=== PATIENT | female | born 1970 | race Caucasian/White ===

== ENCOUNTER 2018-04-11 12:04 | Emergency (ER) | payer OTHER ==
[2018-04-11] MEDS ORDERED: ASPIRIN 81 MG TABLET, CHEWABLE PO ONE (12:21)
[2018-04-11] MEDS ORDERED: MAG HYDROX/AL HYDROX/SIMETH SUSP 30 ML UDCUP PO ONE (12:29)
[2018-04-11] MEDS ORDERED: LIDOCAINE 2% VISCOUS SOLN 20 ML UDCUP PO ONE (12:29)
[2018-04-11] MEDS ORDERED: METOCLOPRAMIDE HCL ORAL SOLN 10 MG/10 ML UDCUP PO ONE (12:29)
--- NOTE | 2018-04-11 12:49 | RADIOLOGY REPORT (SQ) ---
EXAM DESCRIPTION: CHEST SINGLE VIEW COMPLETED DATE/TIME: 04/11/2018 12:41 pm REASON FOR STUDY: chest pain COMPARISON: None. EXAM PARAMETERS: NUMBER OF VIEWS: One view. TECHNIQUE: Single frontal radiographic view of the chest acquired. RADIATION DOSE: NA LIMITATIONS: None. FINDINGS: LUNGS AND PLEURA: No opacities, masses or pneumothorax. No pleural effusion. MEDIASTINUM AND HILAR STRUCTURES: No masses. Contour normal. HEART AND VASCULAR STRUCTURES: Heart normal in size. Normal vasculature. BONES: No acute findings. HARDWARE: None in the chest. OTHER: No other significant finding. IMPRESSION: NO ACUTE RADIOGRAPHIC FINDING IN THE CHEST. TECHNICAL DOCUMENTATION: JOB ID: [id number] [employer] All Rights Reserved Reading location - IP/workstation name: [email or web address]
[2018-04-11 13:05] LABS: ABSOLUTE LYMPHOCYTES (AUTO) 1.5 10^3/uL (0.5-4.7); ABSOLUTE MONOCYTES (AUTO) 0.4 10^3/uL (0.1-1.4); BASOPHILS % (AUTO) 0.7 % (0-2); EOSINOPHILS % (AUTO) 0.8 % (0-6); HEMATOCRIT 39.6 % (36.0-47.0); HEMOGLOBIN 13.3 g/dL (12.0-15.5); MEAN CORPUSCULAR HEMOGLOBIN 27.1 pg (27.0-33.4); MEAN CORPUSCULAR HGB CONC 33.5 g/dL (32.0-36.0); MEAN CORPUSCULAR VOLUME 81 fl (80-97); MONOCYTES % (AUTO) 6.5 % (3-13); PLATELET COUNT 205 10^3/uL (150-450); RED BLOOD COUNT 4.91 10^6/uL (3.72-5.28); RED CELL DISTRIBUTION WIDTH 14.1 % (11.5-14.0); TOTAL CELLS COUNTED % (AUTO) 100 %
[2018-04-11 13:24] LABS: ALANINE AMINOTRANSFERASE 41 U/L (9-52); ALBUMIN 4.4 g/dL (3.5-5.0); ALKALINE PHOSPHATASE 70 U/L (38-126); ANION GAP 9 (5-19); ASPARTATE AMINO TRANSFERASE 34 U/L (14-36); BILIRUBIN,DIRECT 0.1 mg/dL (0.0-0.4); BILIRUBIN,TOTAL 0.4 mg/dL (0.2-1.3); BLOOD UREA NITROGEN 13 mg/dL (7-20); CALCIUM 10.1 mg/dL (8.4-10.2); CARBON DIOXIDE 28 mmol/L (22-30); CHLORIDE 104 mmol/L (98-107); CREATINE KINASE 66 U/L (30-135); GLUCOSE 88 mg/dL (75-110); POTASSIUM 4.2 mmol/L (3.6-5.0); SODIUM 141.4 mmol/L (137-145); TOTAL PROTEIN 7.5 g/dL (6.3-8.2)
[2018-04-11] MEDS ORDERED: NITROGLYCERIN 0.4 MG/TAB 25 TAB/BOTTLE SL PRN (13:33)
[2018-04-11 13:39] LABS: CREATINE KINASE MB 0.46 ng/mL (<4.55)
[2018-04-11 13:48] LABS: TROPONIN I < 0.012 ng/mL
--- NOTE | 2018-04-11 15:43 | ER Document Report ---
ED General - General Chief Complaint: Chest Pain Stated Complaint: CHEST PAIN Time Seen by Provider: 04/11/18 12:20 Primary Care Provider: CANDIDA KNIGHT MD [ASSOCIATE] - Follow up as needed TARIK GRANDA MD [NO LOCAL MD] - Follow up as needed Notes: 47 year old female with a history of GERD on prescribed Prilosec presents to the emergency department complaining of chest pain onset last night. She states her pain started epigastrically and radiated into her neck and right side of her jaw. She initially attributed her symptoms to her heart burn and proceeded to drink milk but states this did not alleviate her symptoms. She is concerned because this episode was different from previous heartburn attacks, she developed chest tightness and shortness of breath, became diaphoretic, had a headache where she felt a "rosales to my head ", nausea. Patient denies ever having an EGD or colonoscopy. Patient states there is a strong family history of cardiac disease on the female side. Patient is a smoker. TRAVEL OUTSIDE OF THE [place] IN LAST 30 DAYS: No - Related Data Allergies/Adverse Reactions: No Known Allergies Allergy (Verified 04/11/18 12:05) Past Medical History - Social History Smoking Status: Current Every Day Smoker Family History: Arthritis, CAD, CVA, DM, Hyperlipidemia, Hypertension, Malignancy, Thyroid Disfunction Patient has suicidal ideation: No Patient has homicidal ideation: No Neurological Medical History: Reports: Hx Migraine Renal/ Medical History: Denies: Hx Peritoneal Dialysis GI Medical History: Reports: Hx Gastroesophageal Reflux Disease, Hx Hiatal Hernia Past Surgical History: Reports: Hx Breast Surgery - removed, Hx Cholecystectomy, Hx Genitourinary Surgery - bladder tact, Hx Hysterectomy, Hx Urinary Tract Surgery - bladder tac - Immunizations Immunizations up to date: Yes Hx Diphtheria, Pertussis, Tetanus Vaccination: Yes Physical Exam - Vital signs Vitals: Temp Pulse Resp BP Pulse Ox 98.2 F 76 16 115/76 100 04/11/18 12:07 04/11/18 12:07 04/11/18 12:07 04/11/18 12:07 04/11/18 12:07 Course - Re-evaluation Re-evalutation: 04/11/18 17:06 Very well-appearing 47 female with history of GERD but new chest pain unlike previous history of GERD. Patient received a GI cocktail while in triage approximately 15 minutes later was having some chest pain. She has not had any episodes since. Her pain is mostly epigastric and she does have tenderness to palpation of the epigastrium. Initial troponin negative. EKG normal sinus rhythm, chest x-ray unremarkable. Heart score 3. Repeat troponin just drawn. 04/11/18 18:24 Second troponin was negative. Patient has a negative workup. With heart score of 3 and known history of GERD I think the patient is safe and stable to discharge home with close cardiology follow-up for stress testing. I will discuss with the patient. Patient agrees with plan and has close follow-up with primary care. I have given her cardiology referral. 04/11/18 19:27 - Vital Signs Vital signs: Temp Pulse Resp BP Pulse Ox 98.2 F 76 12 108/79 95 04/11/18 12:07 04/11/18 12:07 04/11/18 18:01 04/11/18 18:00 04/11/18 18:01 - Laboratory Result Diagrams: 04/11/18 12:50 04/11/18 12:50 Laboratory results interpreted by me: 04/11/18 12:50 RDW 14.1 H Discharge - Discharge Clinical Impression: Chest pain Qualifiers: Chest pain type: unspecified Qualified Code(s): R07.9 - Chest pain, unspecified Condition: Good Disposition: HOME, SELF-CARE Instructions: Chest Pain of Unclear Cause ([facility]), Reflux Disease (GERD) ([facility]) Additional Instructions: You were seen today for chest pain. The exact cause of your pain is unclear. However, based on your cardiac enzyme testing, chest x-ray, and EKG it does not appear that it is from an immediately life-threatening cause at this time. Although your testing here is normal is critical that you follow-up with your primary care physician for continued evaluation of this chest pain and possible stress testing. I recommended you see your physician within the next 24-48 hours to be evaluated for consideration of a stress test. Please return to emergency department immediately if you have worsening of your chest pain, shortness of breath, vomiting, become unable to exert yourself due to pain or difficulty breathing, you pass out, or have any pain that radiates into your arms, jaw, or back. Please also return if you have any additional symptoms that are concerning to you. Forms: Return to Work Referrals: TARIK GRANDA MD [NO LOCAL MD] - Follow up as needed CANDIDA KNIGHT MD [ASSOCIATE] - Follow up as needed
--- NOTE | 2018-04-11 16:22 | ER Document Report ---
Entered by SHERRY SIMPSON SCRIBE 04/11/18 1244 Acting as scribe for:FORD MOREIRA DO ED Medical Screen (RME) - General Chief Complaint: Chest Pain Stated Complaint: CHEST PAIN Time Seen by Provider: 04/11/18 12:20 Primary Care Provider: TARIK GRANDA MD [Primary Care Provider] - Follow up as needed Mode of Arrival: Ambulatory Information source: Patient Notes: Patient is a 47 year old female with a history of heart burn presents to the emergency department complaining of chest pain onset last night. She states her pain started epigastrically and radiated into her neck and right side of her jaw. She initially attributed her symptoms to her heart burn and proceeded to drink milk but states this did not alleviate her symptoms. Patient reports a family history of cardiac disease and MIs. I have greeted and performed a rapid initial assessment of the patient. A comprehensive ED assessment and evaluation of the patient, analysis of test results, and completion of the medical decision making process will be conducted by additional ED providers. GENERAL: Alert, interacts well. No acute distress. HEAD: Normocephalic, atraumatic. EYES: Pupils equal, round, and reactive to light. Extraocular movements intact. ENT: Oral mucosa moist, tongue midline. NECK: Full range of motion. Supple. Trachea midline. LUNGS: Clear to auscultation bilaterally, no wheezes, rales, or rhonchi. No respiratory distress. HEART: Regular rate and rhythm. No murmurs, gallops, or rubs. EXTREMITIES: Moves all 4 extremities spontaneously. NEUROLOGICAL: Alert and oriented x3. Normal speech. PSYCH: Normal affect, normal mood. SKIN: Warm, dry, normal turgor. No rashes or lesions noted TRAVEL OUTSIDE OF THE [place] IN LAST 30 DAYS: No - Related Data Allergies/Adverse Reactions: No Known Allergies Allergy (Verified 04/11/18 12:05) Past Medical History Neurological Medical History: Reports: Hx Migraine Renal/ Medical History: Denies: Hx Peritoneal Dialysis GI Medical History: Reports: Hx Gastroesophageal Reflux Disease, Hx Hiatal Hernia Past Surgical History: Reports: Hx Breast Surgery - removed, Hx Cholecystectomy, Hx Genitourinary Surgery - bladder tact, Hx Hysterectomy, Hx Urinary Tract Surgery - bladder tac - Immunizations Immunizations up to date: Yes Hx Diphtheria, Pertussis, Tetanus Vaccination: Yes Physical Exam - Vital signs Vitals: Temp Pulse Resp BP Pulse Ox 98.2 F 76 16 115/76 100 04/11/18 12:07 04/11/18 12:07 04/11/18 12:07 04/11/18 12:07 04/11/18 12:07 Course - Re-evaluation Re-evalutation: 04/11/18 13:33 Complains of increasing chest pain, repeat EKG will be ordered, we will try to find the patient a bed and back to put her on a monitor, nitroglycerin will be given. - Vital Signs Vital signs: Temp Pulse Resp BP Pulse Ox 98.2 F 76 16 115/76 100 04/11/18 12:07 04/11/18 12:07 04/11/18 12:07 04/11/18 12:07 04/11/18 12:07 - Laboratory Result Diagrams: 04/11/18 12:50 04/11/18 12:50 Laboratory results interpreted by me: 04/11/18 12:50 RDW 14.1 H Doctor's Discharge - Discharge Referrals: TARIK GRANDA MD [Primary Care Provider] - Follow up as needed I personally performed the services described in the documentation, reviewed and edited the documentation which was dictated to the scribe in my presence, and it accurately records my words and actions.
[2018-04-11 18:27] VITALS: BP 108/79
--- NOTE | 2018-04-12 01:33 | EKG REPORT ---
SEVERITY:- NORMAL ECG - SINUS RHYTHM : Confirmed by: Myra Lu MD 12-Apr-2018 01:31:53
--- NOTE | 2018-04-12 01:33 | EKG REPORT ---
SEVERITY:- NORMAL ECG - SINUS RHYTHM : Confirmed by: Myra Lu MD 12-Apr-2018 01:31:59
== END 2018-04-11 18:55 | disposition home or self-care (01) ==
LOC: ER 12:04
DX: R07.89 Other chest pain (principal); R06.02 Shortness of breath; R61 Generalized hyperhidrosis; R51 Headache; R11.0 Nausea; F17.200 Nicotine dependence, unspecified, uncomplicated; K21.9 Gastro-esophageal reflux disease without esophagitis; Z79.899 Other long term (current) drug therapy; Z82.49 Family history of ischemic heart disease and other diseases of the circulatory system; R10.13 Epigastric pain
CPT/HCPCS: 93005; 99285; 36415; 82553; 82550; 85025; 80053; 84484; 71045; 93010; J3490